=== PATIENT | female | born 1960 | race Caucasian/White ===

== ENCOUNTER 2024-07-02 06:40 | Day surgery (SDC) | payer OTHER ==
[~2024-07-02] VITALS: Ht 152.4 cm; Wt 108.2 kg
[~2024-07-02 06:40] MED LIST: KETOROLAC TROMETHAMINE 30 MG/ML VIAL ONE; LACTATED RINGER'S 1,000 ML IV SCH; LISINOPRIL20 MG PO; NORVASC5 MG PO; ROSUVASTATIN CA20 MG PO; VITAMIN D325 MC2 PO
[2024-07-02] MEDS ORDERED: CEFAZOLIN SODIUM 2 GM/20 ML SYR IV SCH (07:00)
[2024-07-02] MEDS ORDERED: LIDOCAINE HCL 1% 5 ML SDV INJ ONE (07:00)
[2024-07-02] MEDS ORDERED: IBLOOD GLUCOSE TEST STRIP 1 EA TEST VI PRN ×2 (07:00→09:30)
[2024-07-02] MEDS ORDERED: TRANEXAMIC ACID 2,000 MG in SODIUM CHLORIDE 0.9% 100 ML IV SCH (07:00)
[2024-07-02 07:06] VITALS: BP 166/109
[2024-07-02 08:01] VITALS: BP 170/77
[2024-07-02] MEDS ORDERED: DEXAMETHASONE SOD PHOS 4 MG/ML VIAL ONE (08:20)
[2024-07-02] MEDS ORDERED: ondansetron HCL 4 MG/2 ML VIAL ONE (08:20)
[2024-07-02] MEDS ORDERED: KETOROLAC TROMETHAMINE 30 MG/ML VIAL ONE (08:20)
[2024-07-02] MEDS ORDERED: LIDOCAINE HCL 2% 5 ML SDV ONE (08:20)
[2024-07-02] MEDS ORDERED: propofoL 200 MG/20 ML VIAL ONE (08:20)
[2024-07-02] MEDS ORDERED: HYDROCODONE/ACETA 5/325 TAB PO PRN (08:30)
[2024-07-02] MEDS ORDERED: fentaNYL citrate 100 MCG/2 ML VIAL ONE (08:46)
[2024-07-02] MEDS ORDERED: DICLOFENAC SOD 75 MG TABEC PO SCH (09:00)
[2024-07-02] MEDS ORDERED: HYDROCODON-ACE1 EA10 PO (09:19)
[2024-07-02] MEDS ORDERED: DICLOFENAC SODI75 MG PO (09:19)
[2024-07-02] MEDS ORDERED: NALOXONE HCL 0.4 MG SYR IV PRN (09:30)
[2024-07-02] MEDS ORDERED: ondansetron HCL 4 MG/2 ML VIAL IV PRN (09:30)
[2024-07-02] MEDS ORDERED: fentaNYL citrate 50 MCG/ML SDV IV PRN (09:30)
[2024-07-02 09:55] VITALS: BP 170/64
[2024-07-02 11:10] VITALS: BP 158/82
--- NOTE | 2024-07-05 06:54 | OR ---
[facility] [address], [place] [address] Signed DATE OF OPERATION: 07/02/2024 SURGEON: Arnie Glover MD PREOPERATIVE DIAGNOSIS: Medial meniscus tear, left. POSTOPERATIVE DIAGNOSIS: Medial meniscus tear, left. PROCEDURE PERFORMED: Left knee arthroscopy with partial meniscectomy. AUTOMATIC DRILLER AND REAMER: None. ANESTHESIA: General. BLOOD LOSS: Minimal. BRIEF HISTORY: Phuong is a 64-year-old female with pain and locking in her knee. MRI was consistent with a large complex posteromedial meniscus tear. Risks and benefits of operative treatment were discussed with her and she elected to proceed. Once consent was obtained, she was taken to the operating room. After adequate anesthesia, she was placed on the operating room table. The right leg was flexed, abducted and externally rotated on a well-padded leg crooks. The leg was then prepped and draped in a standard sterile fashion after placing it into a leg crooks. No tourniquet was placed. The portal sites were then injected using 0.25% Marcaine with epinephrine. Standard inferolateral and superolateral portals were made and the scope was introduced into the knee. ARTHROSCOPIC FINDINGS: Moderate synovitis was noted throughout the knee. There was grade 2 with small areas of grade 3 chondromalacia of the patella, grade 2 on the trochlea. Medial and lateral gutters were clear. The lateral compartment showed grade 2 to a smaller area of grade 3 chondromalacia on the femur. The lateral meniscus was intact. ACL and PCL were intact. 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 There was a large complex tear over the posteromedial Electronically Signed By: ARNIE GLOVER MD 07/05/24 0654 PATIENT NAME: PHUONG CRAFT OPERATIVE REPORT DATE OF : 60 REPORT #: [id number] PHYSICIAN: ARNIE GLOVER MD PCP: ANSELMO LITTLE DO REPORT IS CONFIDENTIAL AND NOT TO BE RELEASED WITHOUT AUTHORIZATION [facility] [address] [facility] [place] [address] Signed meniscus with a flap pulled back underneath the meniscus and the midbody. DESCRIPTION OF OPERATION: Standard inferomedial portal was established. The straight and curved biters were then used to trim the meniscus back to a stable rim. The flap was removed and then smoothed using the shaver. The meniscus was smoothed out and all debris was evacuated. Chondral flaps removed off the medial femoral condyle. The scope was then withdrawn. Portals were closed with 3-0 nylon. The knee was injected with 60 mg of Toradol. Portals were dressed with Adaptic, 4 x 8, and an Freddy wrap. She tolerated the procedure well. All sponge, needle, and instrument counts were correct. Arnie Glover MD BA/ASHLEYL /[id number] Copies: ~ Electronically Signed By: ARNIE GLOVER MD 07/05/24 0654 PATIENT NAME: PHUONG CRAFT OPERATIVE REPORT DATE OF : 60 REPORT #: [id number] PHYSICIAN: ARNIE GLOVER MD PCP: ANSELMO LITTLE DO REPORT IS CONFIDENTIAL AND NOT TO BE RELEASED WITHOUT AUTHORIZATION
== END 2024-07-02 11:45 | disposition home or self-care (01) ==
LOC: DS 06:40
PROVIDERS: ATTEND Specialist
PROC: 0SBD4ZZ Excision of Left Knee Joint, Percutaneous Endoscopic Approach (ICD-10-PCS; principal; 2024-07-02 09:00)
DX: S83.242A Other tear of medial meniscus, current injury, left knee, initial encounter (principal); X58.XXXA Exposure to other specified factors, initial encounter; M94.262 Chondromalacia, left knee; I10 Essential (primary) hypertension; K21.9 Gastro-esophageal reflux disease without esophagitis; Z79.899 Other long term (current) drug therapy
CPT/HCPCS: 01400; J0690; J1100; J1885; J2001; J2405; J2704; J3010; J7121